=== PATIENT | male | born 1995 | race Caucasian/White ===

== ENCOUNTER 2019-12-30 16:58 | Emergency (ER) | payer OTHER, SELFPAY ==
[2019-12-30 17:05] VITALS: BP 157/83; PULSE 102; RESP 16; TEMP 37.4; O2SAT 98
--- NOTE | 2019-12-30 17:08 | W.ED.GENAD ---
Discharge Plan Disposition Patient Disposition: HOME Condition: Stable Discharge Details Chief Complaint: GenMedical Clinical Impression: Screen for STD (sexually transmitted disease) Primary Care Provider: Nomi Jarrell ED Provider: Kadi Beyer Home Meds and New Rx's Prescriptions: No Action No Known Home Meds RF: 0 Discharge Instructions Instructions: Safe Sex (ED) Additional Instructions: Follow up with primary care provider in 3-5 days. Return to ED sooner if any worsening or concerns. Increase oral fluids. The culture will return in 2 to 3 days if it is positive you will be called with the news. Try to abstain from sexual intercourse until tested positive or you or your partner is treated. Referrals: Nomi Jarrell MD [Primary Care Provider] - Discharge Data Discharge Date/Time-TO BE ENTERED AT DEPARTURE: 12/30/19 18:06 Medical Decision Making 1714: Urinalysis ordered and urine gonorrhea chlamydia culture. Azithromycin 1 g p.o. and ceftriaxone 250 mg IM ordered to treat prophylactically for STD exposure. Discussed with patient that we do not get results back for 2 to 3 days verbalized understanding. Urethral swab obtained due to too much urine being sent to the lab. Patient discharged with instructions to abstain from sexual intercourse until having results. Patient verbalized understanding. This text was generated using [employer] dictation system, please disregard any oddities of phrase or misspellings. HPI General Mode of arrival: ambulatory. Date/Time Provider Initiated Documentation: 12/30/19 16:59. Limitations to Documentation: no limitations. Information obtained by: patient. HPI Narrative: 24-year-old male presents with screening request for gonorrhea chlamydia. Patient states that he has been sexually active with a person of the opposite sex who could told him yesterday she tested positive for chlamydia. Patient denies any lesions dysuria or any symptoms at this time. He states he has never tested positive for STD. Related Data Home Medications Medication Instructions Recorded Confirmed Unknown [No Known Home Meds] 12/30/19 12/30/19 Allergies Allergy/AdvReac Type Severity Reaction Status Date / Time No Known Allergies Allergy Unverified 12/30/19 17:08 General Stated Complaint: GenMedical PHYLLIS: 3 Review of Systems Narrative: Constitutional: Negative for weight loss, alert and oriented, well groomed, normal body habitus, appears comfortable. HEENT: Denies trauma, headaches, blurry vision, nasal discharge, sore throat, trouble swallowing. Chest: Denies chest pain, palpitations, irregular rhythm, hypertension. Respiratory: Denies Shortness of breath, cough, hemoptysis. GI: Denies abdominal pain, nausea, vomiting, diarrhea, constipation. : Denies dysuria, hematuria, flank pain, rectal bleeding. Possible exposure to STD. Neuro: Denies dizziness, blurry vision, weakness, syncope, headache or facial numbness. Hematologic: Denies easy bruising, intolerance to heat or cold, hair loss. [facility] Social History Smoking/Tobacco Use Status: Never Alcohol Intake: never Drug use: Never Substance use type: does not use Do you feel safe at home: Yes Do you feel safe in your relationship?: Yes Exam Narrative Exam Narrative: Constitutional: Alert and oriented x3. Appears stated age. Normal body habitus. Head: Normocephalic, no trauma. Eyes: Pupils PERRLA, Red reflex noted, EOM's intact. Eyelids symmetrical without lesions, discharge, or swelling. ENT: Bilateral TM's WNL, External ear normal to inspection, no mastoid TTP, swelling, or erythema, Nasal turbinates WNL, no nasal discharge. Normal dentition, Posterior pharynx WNL, no exudate. Chest: RRR, Normal S1, S2, distal pulses intact. Resp: Lungs clear to auscultation bilaterally, no wheezes, rales, or rhonchi. Musculoskeletal: Normal gait, 5/5 strength to all four extremities. : No suspicious lesions, no rash, no discharge from the ureteral meatus. Nontender to the scrotal sac. Skin: No suspicious rashes or lesions. Capillary refill less than 2 sec. Course Vital Signs Vital signs: Vital Signs Temperature 37.4 C 12/30/19 17:05 Pulse 102 H 12/30/19 17:05 Respiratory Rate 16 12/30/19 17:05 Blood Pressure 157/83 H 12/30/19 17:05 Pulse Oximetry 98 12/30/19 17:05 Temperature 37.4 C 12/30/19 17:05 Temperature Source Tympanic 12/30/19 17:05 Pulse 102 H 12/30/19 17:05 Respiratory Rate 16 12/30/19 17:05 Blood Pressure 157/83 H 12/30/19 17:05 Blood Pressure Position Sitting 12/30/19 17:05 Pulse Oximetry 98 12/30/19 17:05 Oxygen Delivery Method Room Air 12/30/19 17:05 Oxygen Flow Rate 0 12/30/19 17:05 Pain Level 0 12/30/19 17:05
[2019-12-30 17:30] VITALS: RESP 16
[2019-12-30] MEDS: cefTRIAXone 250 MG VIAL IM (17:34)
[2019-12-30] MEDS: Azithromycin 250 MG TAB 1000 MG PO (17:34)
[2019-12-30 17:46] LABS: Bilirubin Negative (Negative); Blood Negative (Negative); Clarity Clear (Clear); Glucose Negative (Negative); Ketones Negative (Negative); Leukocyte Esterase Negative (Negative); Nitrite Negative (Negative); Specific Gravity >= 1.030 (1.005-1.025); Urobilinogen 0.2 EU/dL (Up TO 0.2); pH 5.5 (5-8)
[2020-01-02 12:27] LABS: Chlamydia Result Negative (Negative); GC Result Negative (Negative)
== END 2019-12-30 18:06 | disposition home or self-care (01) ==
LOC: ER 18:06
PROVIDERS: Emergency Provider Registered Nurse Emergency; PCP Pediatrics
DX: Z20.2 Contact with and (suspected) exposure to infections with a predominantly sexual mode of transmission (principal)
CPT/HCPCS: 87491; 87591; 96372; 99284; 81003; J0696

== ENCOUNTER → 2024-01-25 02:23 | Outpatient (CLI) | payer OTHER, SELFPAY ==
--- NOTE | 2024-01-25 | DI.MRI_ITS ---
Exam(s) MR LUMBAR SPINE WO EXAM: MR LUMBAR SPINE WO CLINICAL HISTORY: M54.50 LBP, R20.2 Paresthesias LLE. TECHNIQUE: Multiplanar multisequence MRI of the Lumbar spine was performed. COMPARISON: No exams were available for comparison FINDINGS: Bones: The last intervertebral disc space is designated the L5/S1 level for the numbering purpose of this ex amination. The vertebral body heights are well maintained. Alignment: Unremarkable. The marrow signal characteristics are unremarkable. Cord: The conus tip ends at the T12 level. It is of normal size and signal intensity. T12-L1: No focal disc herniation is present. No central spinal canal stenosis.No neural foraminal st enosis. L1-2: No focal disc herniation is present. No central spinal canal stenosis.No neural foraminal sten osis. L2-3:Minimal disc bulging. No focal disc herniation is present. No central spinal canal stenosis.N o neural foraminal stenosis. L3-4: Minimal disc bulging. Schmorl's node at the superior endplate L4.No focal disc herniation is p resent. No central spinal canal stenosis.No neural foraminal stenosis. L4-5: No focal disc herniation is present. No central spinal canal stenosis.No neural foraminal sten osis. L5-S1: Minimal disc bulging.No focal disc herniation is present. No central spinal canal stenosis.N o neural foraminal stenosis. The visualized SI joints and sacrum are unremarkable. Soft tissues: The paraspinal soft tissues are unremarkable. IMPRESSION: No evidence of disc herniation. Minimal disc bulging at L2-3, L3-4 and L5-S1. No evidence of signif icant spinal stenosis or neuroforaminal narrowing. DATA REPOSITORY:
== END ==
PROVIDERS: Visit Provider Nurse Practitioner Family
DX: M54.50 Low back pain, unspecified (principal); R20.2 Paresthesia of skin
CPT/HCPCS: 72148

== ENCOUNTER 2024-09-07 10:25 | Outpatient (CLI) | payer OTHER, SELFPAY ==
--- NOTE | 2024-09-07 06:00 | DI.RAD_ITS ---
Exam(s) XR PAIN CLINIC LUMBAR SP 2V EXAM: XR PAIN CLINIC LUMBAR SP 2V CLINICAL HISTORY: Lumbar Spondylosis TECHNIQUE: 2D and realtime digital imaging was performed. CONTRAST MATERIAL: Refer to procedure report. COMPARISON: No exams were available for comparison FINDINGS: Fluoroscopy was provided for Dr. Hernandez during the performance of a facet joint injection. Please refer to the procedure report for complete details. Ka,r=12.9 mGy IMPRESSION: RADIATION DOSE DELIVERED: 0.0 0.0 0
[2024-09-07 10:37] VITALS: BP 145/92; PULSE 84; RESP 18; TEMP 36.4; O2SAT 99
--- NOTE | 2024-09-07 11:14 | PDOC.PAIN ---
Date of service: 09/07/24 Time of Service: 11:33 Pain Managment Procedure Note Procedure Note Procedure Note: Diagnostic Lumbar Facet Joint Injection ? Location: Left Lumbar Facet Joints ? Levels: L4-5, L5-S1 ? Pre-procedure Diagnosis: M47.817 Spondylosis without myelopathy or radiculopathy, lumbosacral region M47.816 Spondylosis without myelopathy or radiculopathy, lumbar region ? Post-procedure Diagnosis:? The same as above ? Sedation:? None ? Estimated blood loss:? less than 2 cc ? Surgeon: Mark Hernandez MD COMMENT: Pain 11/28 .Decision was made to proceed with intra-articular facet injections for the possibility of not having to do medial branch blocks and radiofrequency ablation if patient get long lasting relief (> 3 months). ? Procedure Detail:? The procedure and potential risks were explained to the patient and informed written consent was obtained. The patient was escorted to the procedure room and placed in the prone position. Pillows were utilized for proper positioning and comfort.? Time out was performed in the procedure room with nursing staff confirming the patient's identity, procedure to be performed, allergies, and any blood thinning or anti-platelet medications.? Sterile technique was maintained throughout the procedure.? The patient's lumbosacral area was prepped with chlorhexidine and draped in a sterile fashion. Lidocaine 1% was used to anesthetize the skin. An oblique fluoroscopic view was obtained, with visualization of the facet joint.? A 22gauge, Quincke needle was gently advanced through the facet capsule.? Needle placement was confirmed with fluoroscopy in AP, oblique, and lateral views by injecting 0.25cc of contrast.? 20 mg of Depomedrol and 0.5ml of 0.5% bupivacaine was injected into the capsule at L4-5 Left . This was repeat at L5-S1 Left ? The patient tolerated the procedure well and was transported to recovery area for observation and discharge instructions. Permanent images saved and recorded. Plan:? Follow up prn COMMENT:Pain went from 11/28 to 09/30. Pain? 60 % better. Will use this as both diagnostic and potentially therapeutic.? With short-term relief from the level that it was not long-lasting then we will proceed with for LMBB #2 and possible radiofrequency ablation
[2024-09-07 11:18] VITALS: O2SAT 98
[2024-09-07 11:20] VITALS: O2SAT 97
[2024-09-07] MEDS: Bupivacaine 0.5% Pres-Free 10 ML VIAL IJ (11:35)
[2024-09-07] MEDS: Omnipaque 240 MG/ML 50 ML BTL IJ (11:36)
[2024-09-07] MEDS: methylPREDNISolone ACETATE 80 MG/ML VIAL IJ (11:37)
== END 2024-09-07 10:26 | disposition home or self-care (01) ==
LOC: PC 10:25
PROVIDERS: Visit Provider Anesthesiology Pain Medicine
DX: M47.817 Spondylosis without myelopathy or radiculopathy, lumbosacral region (principal); M47.816 Spondylosis without myelopathy or radiculopathy, lumbar region
CPT/HCPCS: 00123; 64493; 64494; 72100; J0665; J1010; Q9967

== ENCOUNTER 2024-10-24 10:54 | Outpatient (CLI) | payer OTHER, SELFPAY ==
[2024-10-24 11:05] VITALS: BP 138/90; PULSE 98; RESP 18; TEMP 37; O2SAT 98
--- NOTE | 2024-10-24 11:06 | PDOC.PAIN ---
Date of service: 10/24/24 Time of Service: 11:44 Pain Managment Procedure Note Procedure Note Procedure Note: Diagnostic Lumbar Facet Joint Injection ? Location: Right Lumbar Facet Joints ? Levels: L4-5, L5-S1 ? Pre-procedure Diagnosis: M47.817 Spondylosis without myelopathy or radiculopathy, lumbosacral region M47.816 Spondylosis without myelopathy or radiculopathy, lumbar region ? Post-procedure Diagnosis:? The same as above ? Sedation:? None ? Estimated blood loss:? less than 2 cc ? Surgeon: Mark Hernandez MD COMMENT: Patient had previous left-sided facet injection with good relief. He is still doing physical therapy. Pain 2/10 . Decision was made to proceed with intra-articular facet injections for the possibility of not having to do medial branch blocks and radiofrequency ablation if patient get long lasting relief (> 3 months). ? Procedure Detail:? The procedure and potential risks were explained to the patient and informed written consent was obtained. The patient was escorted to the procedure room and placed in the prone position. Pillows were utilized for proper positioning and comfort.? Time out was performed in the procedure room with nursing staff confirming the patient's identity, procedure to be performed, allergies, and any blood thinning or anti-platelet medications.? Sterile technique was maintained throughout the procedure.? The patient's lumbosacral area was prepped with chlorhexidine and draped in a sterile fashion. Lidocaine 1% was used to anesthetize the skin. An oblique fluoroscopic view was obtained, with visualization of the facet joint.? A 22gauge, Quincke needle was gently advanced through the facet capsule.? Needle placement was confirmed with fluoroscopy in AP, oblique, and lateral views by injecting 0.25cc of contrast.? 20 mg of Depomedrol and 0.5ml of 0.5% bupivacaine was injected into the capsule at L4-5 Right . This was repeat at L5-S1 Right ? The patient tolerated the procedure well and was transported to recovery area for observation and discharge instructions. Permanent images saved and recorded. Plan:? Follow up prn COMMENT:Pain went from 2 /10 to 0/10. Pain? 100 % better. Will use this as both diagnostic and potentially therapeutic.? With short-term relief from the level that it was not long-lasting then we will proceed with for LMBB #2 and possible radiofrequency ablation. Patient does have a Schmorl's node at the superior endplate of L4 that might be contributing to his pain and could be potentially treated with basivertebral nerve ablation.
[2024-10-24 11:20] VITALS: PULSE 82; O2SAT 98
[2024-10-24 11:30] VITALS: PULSE 95; O2SAT 96
--- NOTE | 2024-10-24 11:35 | DI.RAD_ITS ---
Exam(s) XR PAIN CLINIC LUMBAR SP 2V EXAM: XR PAIN CLINIC LUMBAR SP 2V CLINICAL HISTORY: Dx: Lumbar Spondylosis. TECHNIQUE: Fluoroscopy was provided for the referring physician for guidance with performing pain cl inic injection procedure. COMPARISON: No exams were available for comparison FINDINGS: Please see procedure note for details. Fluoro time: 25.8 seconds RADIATION DOSE DELIVERED: Kar=11.2 mGy
[2024-10-24] MEDS: Omnipaque 240 MG/ML 50 ML BTL IJ (11:36)
[2024-10-24] MEDS: Bupivacaine 0.5% Pres-Free 10 ML VIAL IJ (11:36)
[2024-10-24] MEDS: Nerve Block Tray 1 EACH MC (11:36)
[2024-10-24] MEDS: methylPREDNISolone ACETATE 80 MG/ML VIAL IJ (11:37)
== END 2024-10-24 10:55 | disposition home or self-care (01) ==
LOC: PC 10:54
PROVIDERS: Visit Provider Anesthesiology Pain Medicine
DX: M47.817 Spondylosis without myelopathy or radiculopathy, lumbosacral region (principal); M47.816 Spondylosis without myelopathy or radiculopathy, lumbar region
CPT/HCPCS: 00123; 64493; 64494; 72100; J0665; J1010; Q9967

== ENCOUNTER 2024-12-20 07:22 | Outpatient (CLI) | payer OTHER, SELFPAY ==
--- NOTE | 2024-12-20 06:00 | DI.RAD_ITS ---
Exam(s) XR PAIN CLINIC LUMBAR SP 2V EXAM: XR PAIN CLINIC LUMBAR SP 2V CLINICAL HISTORY: Dx: Lumbar Spondylosis TECHNIQUE: 2D and realtime digital imaging was performed. CONTRAST MATERIAL: Refer to procedure report. COMPARISON: No exams were available for comparison FINDINGS: Fluoroscopy was provided for Dr. Hernandez during the performance of a lumbar medial branch block. Pl ease refer to the procedure report for complete details. Ka,r=5.7 mGy IMPRESSION: RADIATION DOSE DELIVERED: 0.0 0.0 0
[2024-12-20 07:30] VITALS: BP 134/84; PULSE 81; RESP 18; TEMP 36.2; O2SAT 98
--- NOTE | 2024-12-20 07:55 | PDOC.PAIN_ITS ---
Date of service: 12/20/24 Time of Service: 08:21 Pain Managment Procedure Note Procedure Note Procedure Note: Location: Bilateral Medial Branches ? Levels: L3,4,5? (L4-5, L5-S1 FACET) ? Pre-procedure Diagnosis: M47.817 Spondylosis without myelopathy or radiculopathy, lumbosacral region M47.816 Spondylosis without myelopathy or radiculopathy, lumbar region ? Post-procedure Diagnosis:? The same as above ? Sedation: NONE? Estimated blood loss:? less than 2 cc ? Surgeon:? Mark Hernandez MD COMMENT: Patient had? GREATER THAN 80% relief after the first medial branch block for greater than the duration of the local anesthetic.? Patient had bilateral intra-articular facet injections which gave him good transient relief from the local anesthetic and then longer-term relief from the steroid but only lasted a week or so. PRE PROCEDURE PAIN SCORE: 4 /10 ? Procedure Detail:? The procedure and potential risks were explained to the patient and informed written consent was obtained. The patient was escorted to the procedure room and placed in the prone position. Pillows were utilized for proper positioning and comfort.? Time out was performed in procedure room with nursing staff confirming the patient's identity, procedure to be performed, allergies, and any blood thinning or anti-platelet medications. The patient's lower back was prepped with chlorhexidine and draped in a sterile fashion. Sterile technique was maintained throughout the procedure.? Sterile gloves were used, a face mask was worn, and new single dose vials of all medications were used with the top being swabbed with alcohol and given time to dry prior to withdrawal of medication.? A left and right-sided oblique fluoroscopic view was obtained, with visualization of the: ?RIGHT and LEFT L3,4 and DORSAL RAMUS L5 AT SACRAL ALA ? junction of the transverse process and superior articular process. Lidocaine 1% was used to anesthetize the skin. A 22-gauge Quincke needle was advanced along the superior margin of the transverse process and lateral to the articular process.? It was directed inferiorly and medially so that the tip struck the junction of the base of the transverse process and the superior articular proc ess. The needle was then walked over the superior aspect of the transverse process and advanced slightly along the course of the L3,4,5 medial branch nerves. Proper placement was verified in A/P, oblique and lateral views under fluoroscopy. At this location, following negative aspiration, 0.5cc 2% lidocaine was injected.? The patient tolerated the procedure well and was transported to the recovery area for observation and discharge instructions. Permanent images saved and recorded. Follow-up:?? Will plan to proceed with lumbar medial branch RFA if the patient gets good relief from today's procedure lasting for at least 2 hours. COMMENT:Pain went from 4/10 to 0/10. Before the patient left patient had 100% pain relief. Consider basivertebral nerve ablation at 3?4 for Modic 1 and 2 changes Coding Conscious Sedation used for procedure: No CPT Codes: LMBB (includes Fluoro) Lumbar/Sacral, single lvl *BILATERAL* - [id number] ([id number]) LMBB (includes Fluoro) Lumbar/Sacral, 2nd lvl - 12076 ([id number] ~G) LT - LEFT SIDE, RT - RIGHT SIDE Additional Codes: Date of Service (53315) Date of service: 12/20/24
[2024-12-20 08:04] VITALS: PULSE 63; O2SAT 100
[2024-12-20 08:10] VITALS: PULSE 83; O2SAT 99
[2024-12-20] MEDS: Nerve Block Tray 1 EACH MC (08:21)
[2024-12-20] MEDS: Lidocaine 2% Pres-Free 5 ML VIAL IJ (08:21)
== END 2024-12-20 07:23 | disposition home or self-care (01) ==
LOC: PC 07:23
PROVIDERS: Visit Provider Anesthesiology Pain Medicine
DX: M47.816 Spondylosis without myelopathy or radiculopathy, lumbar region (principal)
CPT/HCPCS: 64493; 64494; 72100

== ENCOUNTER 2025-06-27 01:34 | Outpatient (CLI) | payer SELFPAY ==
[2025-06-27 11:23] LABS: Hemoglobin A1C 5.0 % (<5.7)
[2025-06-27 11:50] LABS: Cholesterol 220 mg/dL (<200); HDL Cholesterol 40 mg/dL (>or=40); TSH (W/Ref FT4) 1.40 uIU/mL (0.36-3.74); Triglyceride 410 mg/dL (<150)
[2025-06-27 12:09] LABS: LDL CHOLESTEROL 125 mg/dL (<100)
== END 2025-06-27 01:35 | disposition home or self-care (01) ==
LOC: LBO 01:34
PROVIDERS: PCP Nurse Practitioner Family; Visit Provider Nurse Practitioner Family
DX: E03.9 Hypothyroidism, unspecified (principal); Z13.1 Encounter for screening for diabetes mellitus; Z13.220 Encounter for screening for lipoid disorders
CPT/HCPCS: 36415; 80061; 83721; 83036; 84443